=== PATIENT | female | born 2000 | race Hispanic/Latino ===

== ENCOUNTER 2018-02-25 16:18 | Emergency (ER) | payer BC, OTHER ==
[2018-02-25 17:03] VITALS: BMI 27.2
[2018-02-25 17:05] VITALS: RESP 18; TEMP 98.2; O2SAT 98
--- NOTE | 2018-02-25 17:37 | ED PDOC ---
Arrival/HPI - General Chief Complaint: Lower Extremity Problem/Injury Time Seen by Provider: 02/25/18 16:29 - History of Present Illness Narrative History of Present Illness (Text): 17 yr old female w/ hx of B/L ACL repair p/w R knee pain. Pt was playing soccer and slid towards defender with ball and noted R knee pain. She denies her knee going backwards towards her thigh. No head impact or fall. She denies being on any blood thinners. She denies any hip pain, ankle pain or foot pain. No other complaints. Past Medical History - Past History Past History: No Previous - Infectious Disease Hx of Infectious Diseases: None - Tetanus Immunization Tetanus Immunization: Unknown - Cardiac Hx Cardiac Disorders: No - Pulmonary Hx Respiratory Disorders: No - Neurological Hx Neurological Disorder: No - HEENT Hx HEENT Disorder: No - Renal Hx Renal Disorder: No - Endocrine/Metabolic Hx Endocrine Disorders: No - Hematological/Oncological Hx Blood Disorders: No - Integumentary Hx Dermatological Disorder: No - Musculoskeletal/Rheumatological Hx Musculoskeletal Disorders: Yes (NUMEROUS ANKLE SPRAINS /LEFT ACL TEAR) Hx Fractures: Yes (RT ELBOW AGE 2 CASTED) - Gastrointestinal Hx Gastrointestinal Disorders: No - Genitourinary/Gynecological Hx Genitourinary Disorders: No - Psychiatric Hx Psychophysiologic Disorder: No Hx Substance Use: No - Past Surgical History Past Surgical History: No Previous - Surgical History Other/Comment: b/l acl repair - Anesthesia Hx Anesthesia: Yes Hx Anesthesia Reactions: Yes (ANXIETY COMBATIVE ELEVATED B/P) Hx Malignant Hyperthermia: No - Suicidal Assessment Feels Threatened In Home Enviroment: No Family/Social History Family/Social History: Unknown Family HX Smoking Status: Never Smoked Hx Alcohol Use: No Hx Substance Use: No Hx Substance Use Treatment: No Allergies/Home Meds Allergies/Adverse Reactions: Allergies hay fever Allergy (Mild, Uncoded 02/25/18 17:10) CONGESTION Home Medications: Home Meds Medication Instructions Recorded Confirmed No Known Home Med 02/25/18 02/25/18 Review of Systems - Review of Systems Constitutional: absent: Fatigue Eyes: absent: Vision Changes ENT: absent: Hearing Changes Respiratory: absent: SOB, Cough Cardiovascular: absent: Chest Pain, Palpitations Gastrointestinal: absent: Abdominal Pain, Stool Changes Genitourinary Female: absent: Dysuria, Frequency, Hematuria Musculoskeletal: Arthralgias (R knee). absent: Back Pain, Neck Pain Skin: absent: Rash, Pruritis, Skin Lesions Neurological: absent: Headache, Dizziness, Focal Weakness Endocrine: absent: Diaphoresis, Polyuria, Polydipsia Hemo/Lymphatic: absent: Adenopathy, Easy Bleeding Physical Exam Vital Signs Temp Pulse Resp BP Pulse Ox 02/25/18 17:04 98.2 F 94 H 18 139/86 98 Temperature: Afebrile Blood Pressure: Normal Pulse: Regular Respiratory Rate: Normal Appearance: Positive for: Well-Appearing Pain Distress: None Mental Status: Positive for: Alert and Oriented X 3 - Systems Exam Head: Present: Atraumatic, Normocephalic Pupils: Present: PERRL Extroacular Muscles: Present: EOMI Conjunctiva: Present: Normal Ears: Present: Normal Mouth: Present: Moist Mucous Membranes Pharnyx: Present: Normal. No: ERYTHEMA, EXUDATE Nose (External): Present: Atraumatic. No: Abrasion Nose (Internal): Present: Normal Inspection. No: Septal Hematoma Neck: Present: Normal Range of Motion. No: Meningeal Signs, MIDLINE TENDERNESS Respiratory/Chest: Present: Clear to Auscultation, Good Air Exchange. No: Respiratory Distress Cardiovascular: Present: Regular Rate and Rhythm Abdomen: Present: Normal Bowel Sounds. No: Tenderness, Distention Back: No: Normal Inspection Lower Extremity: Present: NORMAL PULSES, Tenderness (R knee), Neurovascularly Intact, Capillary Refill < 2 s, Other (negative thompsons b/l). No: CALF TENDERNESS, Cyanosis, Erythema Neurological: Present: GCS=15, CN II-XII Intact, Speech Normal, Motor Func Grossly Intact, Normal Cerebellar Funct Skin: Present: Warm, Dry. No: Rashes Psychiatric: Present: Alert, Oriented x 3, Normal Insight Medical Decision Making ED Course and Treatment: 17 yr old F w/ hx of ACL repair b/l p/w R knee pain s/p sports injury. N/V intact. Soft compartments. Probable sprain vs strain. No indication of dislocation. No discoloration distally. pending poct, xr, pain control 02/25/18 17:59 Xray unremarkable. Remains n/v intact. Endorsed pain med reccs, return indications and followup clear for d/c home - RAD Interpretation Radiology Orders: 02/25/18 17:08 KNEE RIGHT 2 VIEWS (AP & LAT) [RAD] Stat - Medication Orders Current Medication Orders: Discontinued Medications Ibuprofen (Motrin Tab) 400 mg PO STAT STA Stop: 02/25/18 17:10 Last Admin: 02/25/18 17:15 Dose: 400 mg Disposition/Present on Arrival - Present on Arrival Any Indicators Present on Arrival: No History of DVT/PE: No History of Uncontrolled Diabetes: No Urinary Catheter: No History of Decub. Ulcer: No History Surgical Site Infection Following: None - Disposition Have Diagnosis and Disposition been Completed?: Yes Diagnosis: Right knee pain Disposition: HOME/ ROUTINE Disposition Time: 18:01 Condition: GOOD Discharge Instructions (ExitCare): Knee Pain (DC) Additional Instructions: Take motrin as prescribed on the bottle for pain to R knee. MONICA SMITH, thank you for letting us take care of you today. Your provider was Oli Barnett and you were treated for KNEE INJURY. The emergency medical care you received today was directed at your acute symptoms. If you were prescribed any medication, please fill it and take as directed. It may take several days for your symptoms to resolve. Return to the Emergency Department if your symptoms worsen, do not improve, or if you have any other problems. Please contact your doctor or call one of the physicians/clinics you have been referred to that are listed on the Patient Visit Information form that is included in your discharge packet. Bring any paperwork you were given at discharge with you along with any medications you are taking to your follow up visit. Our treatment cannot replace ongoing medical care by a primary care provider outside of the emergency department. Thank you for allowing the [facility] team to be part of your care today. If you had an X-Ray or CT scan: A Radiologist will review the ED reading if any change in treatment is needed we will contact you. If you had a blood, urine, or wound culture: It will take several days for the results, if any change in treatment is needed we will contact you. If you had an STI test: It will take 48 hours for the results. Please call after 1 week if you have not heard back. Referrals: Tom Dupont MD [Staff Provider] - Follow up with primary Forms: [employer] ([place])
--- NOTE | 2018-02-25 17:48 | RAD ---
Date of service: 02/25/2018 PROCEDURE: Right Knee Radiographs. HISTORY: sports injury COMPARISON: None. FINDINGS: BONES: Postoperative findings related to prior ACL repair JOINTS: Normal. No osteoarthritis. JOINT EFFUSION: None. OTHER FINDINGS: None. IMPRESSION: No acute findings related to/accounting for the clinical presentation.
[2018-02-25 18:22] VITALS: BP 130/80; PULSE 88
== END 2018-02-25 18:22 | disposition home or self-care (01) ==
LOC: ED 16:18
DX: M25.561 Pain in right knee (principal)